=== PATIENT | male | born 1980 | race Caucasian/White ===

== ENCOUNTER 2021-03-01 11:55 | Emergency (ER) | payer MEDICAID ==
--- NOTE | 2021-03-01 14:58 | ED Physician Documentation ---
PD HPI NECK PAIN - Stated complaint Stated Complaint: NECK PAIN - Chief complaint Chief Complaint: Trauma Hd/Nk - History obtained from History obtained from: Patient - History of Present Illness Timing - onset: How many weeks ago (2) Timing - duration: Weeks (2) Timing - details: Abrupt onset, Still present, Waxing and waning Location: Lower, Right Quality: Pain, Spasm Associated symptoms: Numbness (occasional tingling into right little/ring fingers. Not concistent.). No: Fever, Weakness Worsened by: Movement Contributing factors: Trauma (he was leaning downward picking up something and pulled extension cord connected to projector. It came down and struck birdie back of his neck. Has had pain the area since, worse with ROM, adn hurting more the past few days.) Similar symptoms before: Has not had sx before Recently seen: Not recently seen Review of Systems Constitutional: denies: Fever, Chills Nose: denies: Rhinorrhea / runny nose, Congestion Throat: denies: Sore throat Respiratory: denies: Cough Neurologic: reports: Numbness (has noted some tingling right little/ring fingers at times if lifting arm or turning head. Not consistent symptoms.No headache nor confusion.). denies: Focal weakness PD PAST MEDICAL HISTORY - Past Medical History Cardiovascular: None Respiratory: None Neuro: None Musculoskeletal: None - Past Surgical History Past Surgical History: Yes - Present Medications Home Medications: Ambulatory Orders Medication Instructions Recorded Confirmed dexAMETHasone [Decadron] 4 mg PO DAILY #5 tablet 03/01/21 tiZANidine [Zanaflex] 4 mg PO Q8H PRN #25 tablet 03/01/21 - Allergies Allergies/Adverse Reactions: Allergies Allergy/AdvReac Type Severity Reaction Status Date / Time No Known Drug Allergies Allergy Verified 03/01/21 12:36 - Social History Does the pt smoke?: No Smoking Status: Never smoker Does the pt drink ETOH?: Yes - Immunizations Immunizations are current?: Yes PD ED PE NORMAL - Vitals Vital signs reviewed: Yes - General General: Alert and oriented X 3, No acute distress, Well developed/nourished - Neck Neck: Supple, no meningeal sign, No bony TTP (not tender midline per se but seems to be right paracervical soft tissue. No bruising. No rash. ) Results - Vitals Vitals: Oxygen O2 Source Room air - Rads (name of study) cervicle spine CT Radiology: Prelim report reviewed (no fractures), Final report received, See rad report PD MEDICAL DECISION MAKING - ED course Complexity details: reviewed results, considered differential (get CT to eval fro fractures. Otherwise soft tissue tenderness and seems bruised muscles at this point. ), d/w patient Departure - Departure Disposition: 01 Home, Self Care Clinical Impression: Contusion of neck Qualifiers: Encounter type: initial encounter Qualified Code(s): S10.93XA - Contusion of unspecified part of neck, initial encounter Cervical strain, acute Qualifiers: Encounter type: initial encounter Qualified Code(s): S16.1XXA - Strain of muscle, fascia and tendon at neck level, initial encounter Condition: Stable Record reviewed to determine appropriate education?: Yes Instructions: ED Sprain Strain Neck Prescriptions: dexAMETHasone [Decadron] 4 mg PO DAILY #5 tablet tiZANidine [Zanaflex] 4 mg PO Q8H PRN #25 tablet PRN Reason: Spasms Comments: Heat and gentle stretching for the neck. Physical treatments such as massage or chiropractic are good as well. Use an anti-inflammatory. You can use Decadron steroid anti-inflammatory daily for 5 days. To that add tizanidine muscle relaxant for stiffness and spasms. Add Tylenol every 4-6 hours if needed for pain. Recheck if not improved well over the next several days to a week or so. Discharge Date/Time: 03/01/21 16:14
--- NOTE | 2021-03-01 15:42 | CT Report ---
PROCEDURE: CERVICAL SPINE WO INDICATIONS: neck injury with neck pain TECHNIQUE: Noncontrast 3 mm thick sections acquired from the skull base to the T4 level. Sagittal and coronal r eformats were then constructed. For radiation dose reduction, the following was used: automated exp osure control, adjustment of mA and/or kV according to patient size. COMPARISON: None. FINDINGS: Image quality: Excellent. Bones: No fractures or dislocations. Visualized superior ribs are intact. Soft tissues: Prevertebral soft tissues are normal in thickness. No paravertebral hematomas. No ap ical pneumothoraces. Mild irregularity can be seen of the thyroid, yet without suspicious masses james ntified. IMPRESSION: No acute fractures are seen. Reviewed by: Navin Portillo MD on 03/01/2021 2:41 PM [email or web address] Approved by: Navin Portillo MD on 03/01/2021 2:41 PM ANNA Station ID: [id number]
[2021-03-01 15:45] VITALS: BP 132/85
== END 2021-03-01 16:14 | disposition home or self-care (01) ==
LOC: ED 11:55
DX: S10.93XA Contusion of unspecified part of neck, initial encounter (principal); S16.1XXA Strain of muscle, fascia and tendon at neck level, initial encounter; W20.8XXA Other cause of strike by thrown, projected or falling object, initial encounter; Y93.89 Activity, other specified
CPT/HCPCS: 99283; 99284